=== PATIENT | female | born 1950 | race Caucasian/White ===

== ENCOUNTER 2018-05-06 11:49 | Outpatient (REF) | payer MEDICARE, BC, SELFPAY | END 2018-05-06 12:09 | LOC: LBN 11:49 | PROVIDERS: PCP Internal Medicine; Visit Provider Internal Medicine | DX: R82.90 Unspecified abnormal findings in urine (principal); N89.8 Other specified noninflammatory disorders of vagina | CPT/HCPCS: 87086; 87480; 87510; 87660 ==

== ENCOUNTER 2019-02-10 00:31 | Outpatient (CLI) | payer MEDICARE, BC, SELFPAY ==
--- NOTE | 2019-02-10 08:09 | DI.MAMMO_ITS ---
EXAM: MAMMO SCREENING CLINICAL HISTORY: screening,Z12.39 TECHNIQUE: Mammograms were interpreted according to the usual protocol including computer analysis w [employer] CAD system, tomosynthesis and C-view imaging. FINDINGS: The breasts are of moderate density with fairly symmetrical distribution of fibroglandular tissue. N o dominant mass or clumped microcalcification is identified in either breast. Current examination is compared with previous examinations including April 2017 and there has been no gross interval change in appearance in comparison with the previous studies. IMPRESSION: No specific evidence of malignancy at this time. Routine screening examinations are suggested at year ly intervals in this age group according to the ACS ACR guideines. Category 1. Breast density, catego ry B. BI-RADS Cat 1 - Negative. Breast Density - Category B - Scattered areas of fibroglandular density.
[2019-02-10 09:26] LABS: BUN 19 mg/dL (7-18); CREATININE 0.84 mg/dL (0.55-1.02); Calcium 9.3 mg/dL (8.5-10.1); Calculated LDL 138 mg/dL; Chloride 104 mmol/L (98-107); Cholesterol 219 mg/dL (<200); Glucose 99 mg/dL (74-106); HDL Cholesterol 44 mg/dL (40-60); Potassium 4.1 mmol/L (3.5-5.1); Sodium 143 mmol/L (136-145); Triglyceride 189 mg/dL (<150)
== END 2019-02-10 00:51 ==
PROVIDERS: PCP Internal Medicine; Visit Provider Internal Medicine
DX: Z12.31 Encounter for screening mammogram for malignant neoplasm of breast (principal); I10 Essential (primary) hypertension
CPT/HCPCS: 36415; 77063; 77067; 80048; 80061

== ENCOUNTER 2019-05-19 12:24 | Emergency (ER) | payer MEDICARE, BC, SELFPAY ==
[2019-05-19] VITALS (7 sets, daily range): BP systolic 145–168; BP diastolic 71–82; PULSE 63–88; RESP 8–19; TEMP 36.6–36.7; O2SAT 95–100
--- NOTE | 2019-05-19 12:30 | DI.CT_ITS ---
EXAM: CT ABDOMEN AND PELVIS W CLINICAL HISTORY: MIDDLE AND RIGHT LOWER ABDOMINAL PAIN TECHNIQUE: Imaging Protocol: Axial computed tomography images with coronal and sagittal reformatted images were created and reviewed CONTRAST MATERIAL: Intravenous: Omnipaque 350 Contrast volume:100 mL Oral: No COMPARISON: RENAL COLIC WO CONTRAST from 07/02/2016 FINDINGS: ABDOMEN: Lung Bases: Dependent atelectasis. Liver: Normal density. No measurable mass. Portal, Superior Mesenteric, and Splenic Veins: Unremarkable. Gallbladder and Biliary Tract: No radiodense calculus or dilation. Pancreas: Normal density, no abnormal calcifications or inflammatory process. Stable cystic lesion in the body of the pancreas. Spleen: Normal. Adrenals: No masses seen. Kidneys: Normal size, contour and axis. No radiodense stones or obstructive uropathy. No masses seen. Small right renal cyst. It appears stable compared to 07/02/2016. Abdominal Aorta: Abdominal portion non-dilated. Atherosclerosis. Bowel: No obstruction or bowel wall thickening. Appendix is unremarkable. Colonic diverticulosis but no evidence of acute diverticulitis. Peritoneal Cavity: No ascites, collection or mesenteric inflammatory response. Lymph Nodes: Within normal limits. Bones: Degenerative changes. Soft Tissues: Unremarkable. PELVIS: Bladder: Symmetric distention, no gross wall thickening. Reproductive Organs: Status post hysterectomy. Lymph Nodes: Within normal limits. Bones: Within normal limits. IMPRESSION: No acute abdominal or pelvic process. These findings were discussed with the Emergency Department on the date of the examination. RADIATION DOSE DELIVERED: DATA REPOSITORY: All CT scans at this facility are submitted to the National Radiology Data Registry (NRDR) Dose Index Registry (DIR) with the [employer] (ACR). RADIATION OPTIMIZATION: All CT scans at this facility use at least one of these dose optimization te chniques: automated exposure control; mA and/or kV adjustment per patient size (includes targeted exa ms where dose is matched to clinical indication); or iterative reconstruction.
--- NOTE | 2019-05-19 12:36 | W.ED.GENAD ---
Discharge Plan Disposition Patient Disposition: HOME Condition: Stable Discharge Details Chief Complaint: Abd Prob Clinical Impression: Abdominal pain, Constipation Primary Care Provider: Rea Ponce ED Provider: Devon Yadav Home Meds and New Rx's Prescriptions: Continued pseudoephedrine HCl 30 mg tablet 30 mg PO Q6H PRN (Reason: nasal/sinus congestion) Qty: 10 RF: 0 prednisone 20 mg tablet 40 mg PO DAILY Qty: 10 RF: 0 multivitamin [Daily Multiple] 1 EACH tablet 1 ea PO DAILY RF: 0 acetaminophen [Acetaminophen Extra Strength] 500 MG tablet 1,000 mg PO Q6H PRN RF: 0 metoprolol succinate 50 mg tablet extended release 24 hr 50 mg PO DAILY Qty: 90 RF: 3 montelukast 10 mg tablet 10 mg PO DAILY Qty: 90 RF: 3 loratadine [Claritin Liqui-Gel] 10 mg capsule 10 mg PO DAILY Qty: 90 RF: 3 losartan 100 mg tablet 100 mg PO DAILY Qty: 90 RF: 3 hydrochlorothiazide 12.5 mg capsule 12.5 mg PO DAILY Qty: 90 RF: 3 aspirin [Aspir-81] 81 MG tablet,delayed release (DR/EC) 81 mg PO DAILY RF: 0 levalbuterol tartrate [Xopenex HFA] 15 GM HFA aerosol inhaler 2 puff Inhalation PRN PRNRF: 0 meclizine [Antivert] 25 MG tablet 1 tab PO PRN PRNRF: 0 docusate sodium 100 MG capsule 200 mg PO DAILY RF: 0 Discharge Instructions Instructions: Constipation (ED) Additional Instructions: your cat scan and labs did not show any concerning findings try taking milk of magnesia and if still having trouble with bowel movements in 2-3 days start using fleet enemas. Discuss with your primary care provider seeing gastroenterology or general surgery for the constipation if it continues if you have severe worsening pain or persistent vomit return to the emergency department Medical Decision Making 68 yo female with hx of htn, hld, prior diverticulitis and hysterectomy comes in with chief complaint of constipation and mid to right lower abdomen pain radiating to the back for a week. Denies fevers, vomit, has had nausea. No bloody stools. She has tenderness with palpation to the lower mid and right side of her abdomen without distention. Will obtain labs and imaging to evaluate for entities such as sbo, pancreatitis, appendicitis and diverticulitis. labs and imaging unremarkable. She has mild tenderness in right lower abdomen no guarding or rebound. I suspect constipation and advised to continue her colace and also start laxatives like milk of magnesia and if still no bowel movement enema and if still having issues discuss seeing GI or surgery as outpatient with her pcp. Return precautions given Differential Diagnosis Differential Diagnosis: appendicitis, diverticulitis, constipation Medical Records Medical records reviewed: Yes I reviewed the patient's medical records. Imaging Data Radiologic Study: Attestation: I personally reviewed and interpreted this imaging study as follows: Imaging: CT Scan Radiologist's impression: no acute findings per dr. dawkins Lab Data Lab results reviewed: Yes I reviewed the patient's lab results. HPI General Mode of arrival: ambulatory. Date/Time Provider Initiated Documentation: 05/19/19 12:31. Limitations to Documentation: no limitations. Information obtained by: patient. History of Present Illness 68 year old F presents to the emergency department with the chief complaint of abdominal pain, described as moderate, with intensity rated at 6. Quality is described as stabbing and aching, and is localized to the abdomen. Patient reports radiation to back. Patient started experiencing this week(s) (1) and it has been constant. No relieving factors improve symptom(s), No exacerbating factors reported . Patient did receive the following treatments prior to arrival, none Related Data Home Medications Medication Instructions Recorded Confirmed aspirin [Aspir-81] 81 mg PO DAILY 05/25/13 05/19/19 levalbuterol tartrate [Xopenex HFA] 2 puff INHALATION PRN PRN 05/25/13 05/19/19 docusate sodium 200 mg PO DAILY 04/19/14 05/19/19 meclizine [Antivert] 1 tab PO PRN PRN 04/19/14 05/19/19 acetaminophen [Acetaminophen Extra 1,000 mg PO Q6H PRN tab-cap 05/26/17 05/19/19 Strength] multivitamin [Daily Multiple] 1 ea PO DAILY 05/26/17 05/19/19 pseudoephedrine HCl 30 mg tablet 30 mg PO Q6H PRN #10 tab 05/20/18 05/19/19 loratadine 10 mg capsule 10 mg PO DAILY #90 tab-cap 09/14/18 05/19/19 metoprolol succinate 50 mg 50 mg PO DAILY #90 tab 09/14/18 05/19/19 tablet,extended release 24 hr montelukast 10 mg tablet 10 mg PO DAILY #90 tab 09/14/18 05/19/19 hydrochlorothiazide 12.5 mg capsule 12.5 mg PO DAILY #90 tab-cap 03/22/19 05/19/19 losartan 100 mg tablet 100 mg PO DAILY #90 tab 03/22/19 05/19/19 prednisone 20 mg tablet 40 mg PO DAILY #10 tab 04/25/19 05/19/19 Previous Rx's Medication Instructions Recorded pseudoephedrine HCl 30 mg tablet 30 mg PO Q6H PRN #10 tab 05/20/18 loratadine 10 mg capsule 10 mg PO DAILY #90 tab-cap 09/14/18 metoprolol succinate 50 mg 50 mg PO DAILY #90 tab 09/14/18 tablet,extended release 24 hr montelukast 10 mg tablet 10 mg PO DAILY #90 tab 09/14/18 hydrochlorothiazide 12.5 mg capsule 12.5 mg PO DAILY #90 tab-cap 03/22/19 losartan 100 mg tablet 100 mg PO DAILY #90 tab 03/22/19 prednisone 20 mg tablet 40 mg PO DAILY #10 tab 04/25/19 Allergies Allergy/AdvReac Type Severity Reaction Status Date / Time albuterol Allergy Unknown unknown Verified 05/19/19 12:34 codeine Allergy Unknown unknown Verified 05/19/19 12:34 iodine Allergy Unknown unknown Verified 05/19/19 12:34 lisinopril AdvReac Intermediate cough Verified 05/19/19 12:34 dexamethasone AdvReac Unknown irritability Verified 05/19/19 12:34 and mental status changes enviornmental Allergy Mild Wheezing Uncoded 05/19/19 12:34 General Stated Complaint: Abd Prob LUCI: 3 Review of Systems All systems reviewed & are unremarkable except as noted in HPI and below Constitutional Constitutional: Denies chills, Denies fever(s) and Denies weakness Cardiovascular Cardiovascular: Denies chest pain and Denies dyspnea Respiratory Respiratory: Denies cough and Denies dyspnea Gastrointestinal Gastrointestinal: Denies vomiting Genitourinary Genitourinary: Denies dysuria Musculoskeletal Musculoskeletal: Denies joint swelling Neurologic Neurologic: Denies weakness Psychiatric Psychiatric: Denies depression REPLACED BY [facility] Medical History (Updated 03/26/20 @ 14:14 by Devon Yadav MD) Asthma Bronchitis Chronic sinus infection 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 Perforated TM childhood Diverticulosis Former smoker Heart palpitations HTN (hypertension) Osteoporosis Surgical History (Updated 12/09/17 @ 14:36 by [employer] [place]) Colonoscopy - IV Sedation (11/15/10) D&C 1979 Vaginal hysterectomy (02/22/83) Family History Sister Heart disease Myocardial infarction CABG Sister Heart disease Myocardial infarction Brother Heart disease valve dx Mother Congestive heart failure Father Alzheimer's dementia Stroke Other Hyperlipidemia Social History (Updated 11/02/18 @ 10:27 by Charlene Hannah LPN) Smoking/Tobacco Use Status: Former Tobacco Use Alcohol Intake: current Alcohol Intake frequency: a few times a week Drug use: Never Substance use type: does not use Household members: spouse Housing: house Number of Children: 3 Communication Needs: Corrective Lenses current occupation: retired - worked at [employer] What is your relationship status?: How often do you talk on the phone with friends or family?: three or more times per week Panel score (0-1 are the most socially isolated patients): 2 What type of physical activity do you participate in: walking and regular exercise Duration: 30-45 minutes/day Frequency: daily Seatbelt use: always Drive intox or ride w/intox jinriksha driver: No Working smoke detector in home: Yes Fire extinguisher in home: Yes Carbon monox detector in home: Yes Do you feel safe at home: Yes Do you feel safe in your relationship?: Yes Exam Const General: no acute distress Orientation: alert HENMT Head: normal to inspection Ears: external ears normal General nose exam: external nose normal Mouth: moist mucous membranes Eyes General: appearance normal, both eyes and all related structures Neck Neck: normal visual inspection Resp Effort & Inspection: normal respiratory effort and able to speak in complete sentences Cardio Rate: regular rate GI Palpation: soft Skin General skin exam: no rashes or lesions noted Neuro General: patient alert and patient oriented x3 Extrem General: normal to inspection Psych Mental Status: mental status grossly normal Course Vital Signs Vital signs: Vital Signs Temperature 36.7 C 05/19/19 12:26 Pulse 88 05/19/19 12:26 Respiratory Rate 18 05/19/19 12:26 Blood Pressure 168/82 H 05/19/19 12:26 Pulse Oximetry 98 05/19/19 12:26 Temperature 36.7 C 05/19/19 12:26 Pulse 88 05/19/19 12:26 Respiratory Rate 18 05/19/19 12:26 Respiratory Effort Non-Labored 05/19/19 12:30 Blood Pressure 168/82 H 05/19/19 12:26 Blood Pressure Position Supine 05/19/19 12:26 Pulse Oximetry 98 05/19/19 12:26 Oxygen Delivery Method Room Air 05/19/19 12:26 Oxygen Flow Rate 0 05/19/19 12:26 Pain Level 6 05/19/19 12:26
[2019-05-19] MEDS: Normal Saline 1,000 ML 1000 ML IV (12:40)
[2019-05-19 12:44] LABS: Bilirubin Negative (Negative); Blood Negative (Negative); Clarity Clear (Clear); Glucose Negative (Negative); Ketones Negative (Negative); Leukocyte Esterase Small (Negative); Nitrite Negative (Negative); Specific Gravity 1.015 (1.005-1.025); Urobilinogen 0.2 EU/dL (Up TO 0.2)
[2019-05-19] MEDS: Ondansetron 4 MG/2 ML VIAL IVP (12:45)
[2019-05-19] MEDS: Ketorolac 15 MG/ML VIAL IVP (12:50)
[2019-05-19 12:52] LABS: Abs Immature Grans 0.01 k/cumm (0.0-0.09); Absolute Basophil Count 0.02 k/cumm (0.0-0.2); Absolute Monocyte Count 0.57 k/cumm (0.11-0.7); Absolute Neutrophil Count 4.82 k/cumm (1.2-6.7); Basophils % 0.2; Eosinophils % 2.4; HCT 40.5 % (36.0-46.0); HGB 13.8 g/dL (12.0-15.5); Immature Grans % 0.1 %; Lymphocytes % 31.6; Mean Corp. HGB Concentration 34.1 g/dL (32.0-36.0); Mean Corpuscular Hemoglobin 29.3 pg (27.0-33.0); Mean Platelet Volume 9.8 fL (8.0-11.0); Monocytes % 6.9; Neutrophils % 58.8; Platelet Count 347 x1000/uL (130-400); RBC 4.71 m/cumm (4.00-5.20); RBC Distribution Width 13.4 % (11.7-14.6); White Blood Cell Count 8.22 k/cumm (4.4-10.8)
[2019-05-19] MEDS: Normal Saline Flush 10 ML SYR IVP (12:54)
[2019-05-19 12:59] LABS: Bacteria Rare HPF (Negative); C & S Indicated? Yes; Casts Negative LPF (Negative); Crystals Negative HPF (Negative); Epithelial Cells Rare HPF (Negative); Mucus Negative (Negative); RBC 0-2 HPF (0-2)
[2019-05-19 13:10] LABS: INR 1.1 (0.9-1.1); PTT Activated 29.7 sec (21.0-31.4); Prothrombin Time 10.8 sec (9.3-11.0)
[2019-05-19 13:26] LABS: ALT 29 U/L (14-59); AST 24 U/L (15-37); Albumin 4.1 g/dL (3.4-5.0); Alkaline Phosphatase 97 U/L (46-116); Anion Gap 10.1 mmol/L (3-11); BUN 17 mg/dL (7-18); Bilirubin, Total 0.6 mg/dL (0.2-1.0); CO2 28.9 mmol/L (21.0-32.0); CREATININE 0.86 mg/dL (0.55-1.02); Calcium 9.4 mg/dL (8.5-10.1); Chloride 100 mmol/L (98-107); Glucose 102 mg/dL (74-106); Lipase 197 U/L (73-393); Potassium 3.4 mmol/L (3.5-5.1); Sodium 139 mmol/L (136-145)
[2019-05-19] MEDS: Omnipaque 350 MG/ML 100 ML BTL IJ (13:43)
[2019-05-19] MEDS: Normal Saline - Diluent 50 ML VIAL IV (13:45)
== END 2019-05-19 14:39 | disposition home or self-care (01) ==
PROVIDERS: Emergency Provider Emergency Medicine; PCP Internal Medicine
DX: K59.00 Constipation, unspecified (principal); R10.31 Right lower quadrant pain; R11.0 Nausea; I10 Essential (primary) hypertension
CPT/HCPCS: 36415; 80053; 83690; 87077; 96361; 96374; 96375; 99285; 74177; 81003; 81015; 82248; 85025; 85610; 85730; 87086; 99284; J1885; J2405; J3490

== ENCOUNTER 2019-10-11 14:10 | Outpatient (REF) | payer MEDICARE, BC, SELFPAY ==
[2019-10-11 20:33] LABS: Anion Gap 8.7 mmol/L (3-11); BUN 15 mg/dL (7-18); CO2 28.3 mmol/L (21.0-32.0); Calcium 9.1 mg/dL (8.5-10.1); Calculated LDL 136 mg/dL (<100); Chloride 106 mmol/L (98-107); Cholesterol 204 mg/dL (<200); Glucose 102 mg/dL (74-106); HDL Cholesterol 43 mg/dL (40-60); Potassium 4.5 mmol/L (3.5-5.1); Sodium 143 mmol/L (136-145); TSH 3.02 uIU/mL (0.36-3.74); Triglyceride 126 mg/dL (<150)
== END 2019-10-11 14:30 ==
LOC: LBO 14:10
PROVIDERS: PCP Internal Medicine; Referring Provider Internal Medicine; Visit Provider Internal Medicine
DX: K59.00 Constipation, unspecified (principal); I10 Essential (primary) hypertension; Z82.49 Family history of ischemic heart disease and other diseases of the circulatory system
CPT/HCPCS: 80048; 80061; 84443

== ENCOUNTER → 2019-10-18 10:39 | Outpatient (BNVA) | payer MEDICARE, BC, SELFPAY | PROVIDERS: PCP Internal Medicine; Referring Provider Internal Medicine; Visit Provider Surgery | DX: R19.4 Change in bowel habit (principal); I10 Essential (primary) hypertension | CPT/HCPCS: 99202; 99213 ==

== ENCOUNTER 2019-11-07 11:57 | Day surgery (SDC) | payer MEDICARE, BC, SELFPAY ==
--- NOTE | 2019-11-07 07:06 | W.COLOREPORT ---
Date of service: 11/07/19 Time of Service: 14:02 Colonoscopy Report Date of procedure: 11/07/19 Pre-op diagnosis general: Bowel habit changes Post-op diagnosis procedure note: other (Diverticulosis and rectal polyp) Procedure: Colonoscopy with polypectomy Surgeon: Corrine Alonso Anesthesia proc note operative: other (General/ASA 2/Ju Owen, HERMILA) Estimated blood loss (mL): 2 Pathology: other (Rectal polyp) Complications: None Disposition: same day Indications: Bowel habit changes: A\\ 68 year old female who since february has been having fluctuating BM's from diarrhea to constipation. Also complaining of abdominal pain. On exam she is tender in thye back and that radiates to the front. Abdominal exam benign. Last colonoscopy 9 years ago was normal P\\ Colonoscopy under sedation Risks, benefits and complications have been reviewed. Complications include but are not limited to bleeding, pain, perforation, missed small lesion/polyp, sore throat, aspiration and adverse reaction to the medications. Questions were entertained and answered to their satisfaction and they wished to proceed. No guarantees were given or implied Prep: Miralax/Dulcolax Procedure Start Time: 13:16 Procedure End Time: 13:55 Retraction Time: 12 minutes Findings: One rectal polyps and diverticulosis Procedure Description: After informed consent was obtained the patient was taken to the procedure room and placed in a left decubitous position. Monitors were applied and a time out was done. The patients name, date of , procedure, allergies to medications and metal in their body was reviewed. The patient was then sedated. Once sedated and comfortable a rectal exam was done. External exam was normal. Internal exam revealed a normal sphincter tone and no palpable masses. The scope was then introduced and retro-flexed. No internal hemorrhoids were identified. The scope was then advanced to the cecum with difficulty. The scope kept curling up inside. Patient had to be placed on her back and abdominal pressure had to be applied for the scope to finally advance to the cecum. The ileocecal valve and appendiceal orifice were identified. The prep was adequate. The scope was then slowly retracted over 12 minutes back into the rectum. Polyps were removed with a hot snare in the rectum. There was moderate to severe divrticulosis of the entire large bowel. The scope was removed and the patient was woken up and taken back to Same day surgery in stable condition. The patient tolerated the procedure well and there were no immediate complications. Follow up: The patient should follow up in 5 years unless they develop changes in bowel habits or other new gastrointestinal complaints.
--- NOTE | 2019-11-07 07:07 | W.PM.DSUDISC ---
Discharge Plan Disposition Patient Disposition: HOME Condition: Good Discharge Details Reason For Visit: Colonoscopy Attending Provider: Corrine Alonso Primary Care Provider: Rea Ponce Home Meds and New Rx's Prescriptions: Continued acetaminophen [Acetaminophen Extra Strength] 500 MG tablet 1,000 mg PO Q6H PRN RF: 0 losartan 100 mg tablet 100 mg PO DAILY Qty: 90 RF: 3 hydrochlorothiazide 12.5 mg capsule 12.5 mg PO DAILY Qty: 90 RF: 3 loratadine [Claritin Liqui-Gel] 10 mg capsule 10 mg PO DAILY Qty: 90 RF: 3 metoprolol succinate 50 mg tablet extended release 24 hr 50 mg PO DAILY Qty: 90 RF: 3 montelukast 10 mg tablet 10 mg PO DAILY Qty: 90 RF: 3 aspirin [Aspir-81] 81 MG tablet,delayed release (DR/EC) 81 mg PO DAILY RF: 0 levalbuterol tartrate [Xopenex HFA] 15 GM HFA aerosol inhaler 2 puff Inhalation PRN PRNRF: 0 meclizine [Antivert] 25 MG tablet 1 tab PO PRN PRNRF: 0 docusate sodium 100 MG capsule 200 mg PO DAILY RF: 0 Discontinued bisacodyl [Dulcolax (bisacodyl)] 5 mg tablet,delayed release (DR/EC) 5 mg PO ONCE Qty: 4 RF: 0 polyethylene glycol 3350 17 gram powder in packet 255 g PO DAILY Qty: 15 RF: 0 Discharge Instructions Instructions: Diverticulosis (DC), Colorectal Polyps (DC) Additional Instructions: Findings: Rectal polyps Diverticulosis Follow up: 3-5 years Please call if you develop: fevers >101.5 Nausea or Vomiting Abdominal pain that is not transient DAY SURGERY UNIT POST ENDOSCOPY INSTRUCTIONS 1. Because there will be medication in your system for the next 24 hours, you may feel a little sleepy. Your coordination will be affected. Therefore: a. Do not drive or operate dangerous equipment for 24 hours. b. Do not drink alcohol beverages for 24 hours (not even beer). c. Plan to go home and rest for the day. 2. Generally there are no restrictions on your activity after a day or so has gone by, but you may feel a bit fatigued for a few days. 3 After you arrive home you may have a light meal and return to a normal diet as you can tolerate it without feeling sick to your stomach. 4. After surgery, you may feel pain or discomfort. This should be only transient, but if it persists please contact your doctor. 5. If there are any questions regarding the findings of your procedure, please feel free to contact your doctor. 6. If you are unable to contact your doctor with a problem, contact the hospital at [phone]. 7. Continue all your regular medications unless directed otherwise. I understand the above instructions and have no questions. Signature of Patient or Responsible Adult Escort Date/Time Name of Responsible Adult Escort Signature of Nurse Date/Time Activity:: Activity as Tolerated Diet:: High Fiber diet Discharge Orders Discharge Orders: Discharge Order (Routine); Ordered 11/07/19 Ordered By: Corrine Alonso
[2019-11-07 12:08] VITALS: BP 161/91; PULSE 69; RESP 18; TEMP 36.5; O2SAT 99
[2019-11-07] MEDS: Lactated Ringers 1,000 ML 80 ML IV (12:50)
--- NOTE | 2019-11-07 13:50 | BOWEL_PTH ---
PATIENT: Molly De LOC: [facility] U#:[id number] AGE/SX: 69/F ROOM: RE11/07/[address]: Corrine Alonso MD : 1950 BED: DIS: 11/07/2019 SPEC #: [id number] RECD: 11/07/19 17:51 STATUS: VALERIY RE #: [id number] MIKE: 11/07/19 13:[address]: Corrine Alonso DEPT: Surgical Specimen RECD BY: Monica Stein ENTERED: 11/07/19 17:52 SP TYPE: Bowel OTHR DR: Rea Ponce MD Tissues: 1 - BIOPSY BOWEL Procedures: GROSS AND MICRO LEVEL 4 Comments: [id number]
[2019-11-07 14:35] VITALS: BP 160/102; PULSE 64; RESP 17; TEMP 36.2; O2SAT 97
== END 2019-11-07 14:52 | disposition home or self-care (01) ==
LOC: SUR 11:57
PROVIDERS: PCP Internal Medicine; Visit Provider Surgery
PROC: 0DJD8ZZ Inspection of Lower Intestinal Tract, Via Natural or Artificial Opening Endoscopic (ICD-10-PCS; CPT 45378; principal; 2019-11-07 13:45)
DX: D12.8 Benign neoplasm of rectum (principal); K59.00 Constipation, unspecified; K57.30 Diverticulosis of large intestine without perforation or abscess without bleeding; I10 Essential (primary) hypertension; Z87.891 Personal history of nicotine dependence; Z12.11 Encounter for screening for malignant neoplasm of colon
CPT/HCPCS: 45385; 88305; J2001; J2405

== ENCOUNTER 2020-02-29 03:25 | Outpatient (CLI) | payer MEDICARE, BC, SELFPAY ==
--- NOTE | 2020-02-29 07:00 | DI.MAMMO_ITS ---
EXAM: MG MAMMO SCREENING CLINICAL HISTORY: screening,Z12.39. TECHNIQUE: Bilateral full field digital CC and MLO mammographic images were obtained with 3D tomosyn thesis and utilizing computer aided detection (CAD). COMPARISON: Prior mammograms dating back to 2010, the most recent being January 2019.. FINDINGS: There are no spiculated masses nor malignant appearing microcalcification groups. There is no signif icant architectural distortion nor skin thickening-retraction. IMPRESSION: No radiographic evidence of malignancy. BI-RADS Category 1 - Negative Breast Density - Category B - Scattered areas of fibroglandular density Breast density Category C or D implies that the patient has dense breast tissue. Dense breast tissue can make it harder to find cancer on a mammogram. Dense breast tissue is also associated with an incr eased risk of breast cancer. This information about the result of the mammogram report was provided to the patient to raise their awareness. Use this report when you speak with the patient about their risks for breast cancer, which includes their family history. At that time, you may recommend additional screening tests (Ultrasoun d or MRI) as these tests may add significant information. A negative radiographic report should not delay biopsy if a dominant or clinically suspicious mass is present. Up to ten percent of cancers are not identified on mammography. A negative report may reinforce clinical impression. Adenosis and dense breasts may obscure an underlying neoplasm. False positive reports average 6 to 10%. Patient will receive a letter notifying them of these results.
== END 2020-02-29 03:45 ==
PROVIDERS: PCP Internal Medicine; Visit Provider Internal Medicine
DX: Z12.31 Encounter for screening mammogram for malignant neoplasm of breast (principal)
CPT/HCPCS: 77063; 77067

== ENCOUNTER 2020-09-28 04:14 | Outpatient (CLI) | payer MEDICARE, BC, SELFPAY ==
--- NOTE | 2020-09-28 08:15 | DI.RAD_ITS ---
Exam(s) XR HAND RT COMPLETE EXAM: XR HAND RT COMPLETE CLINICAL HISTORY: continued pain of injured finger, S69.90XA TECHNIQUE: COMPARISON: No exams were available for comparison FINDINGS: Three views were obtained. There are degenerative changes of the DIP joints, most marked at the inde x, middle, and little fingers. No acute fracture or dislocation identified. IMPRESSION: RADIATION DOSE DELIVERED: Total DLP
== END 2020-09-28 04:34 ==
PROVIDERS: PCP Internal Medicine; Visit Provider Internal Medicine
DX: S69.91XA Unspecified injury of right wrist, hand and finger(s), initial encounter (principal); M19.041 Primary osteoarthritis, right hand; X58.XXXA Exposure to other specified factors, initial encounter
CPT/HCPCS: 73130

== ENCOUNTER 2020-12-04 03:36 | Outpatient (CLI) | payer MEDICARE, BC, SELFPAY ==
[2020-12-04 08:46] LABS: Anion Gap 7.9 mmol/L (3-11); BUN 17 mg/dL (7-18); CO2 30.1 mmol/L (21.0-32.0); CREATININE 0.9 mg/dL (0.55-1.02); Calculated LDL 113 mg/dL (<100); Chloride 106 mmol/L (98-107); Cholesterol 185 mg/dL (<200); Glucose 98 mg/dL (74-106); HDL Cholesterol 49 mg/dL (40-60); Potassium 4.6 mmol/L (3.5-5.1); Sodium 144 mmol/L (136-145); Triglyceride 117 mg/dL (<150)
== END 2020-12-04 03:37 | disposition home or self-care (01) ==
LOC: LBO 03:37
PROVIDERS: PCP Internal Medicine; Visit Provider Internal Medicine
DX: I10 Essential (primary) hypertension (principal); E78.00 Pure hypercholesterolemia, unspecified
CPT/HCPCS: 36415; 80048; 80061

== ENCOUNTER 2021-12-25 03:18 | Outpatient (CLI) | payer MEDICARE, BC, SELFPAY ==
[2021-12-25 08:16] LABS: Anion Gap 5.4 mmol/L (3-11); BUN 16 mg/dL (7-18); CO2 31.6 mmol/L (21.0-32.0); CREATININE 0.8 mg/dL (0.55-1.02); Calculated LDL 151 mg/dL (<100); Chloride 106 mmol/L (98-107); Cholesterol 235 mg/dL (<200); Estimated GFR 79.71 (mL/min/1.73m2); Glucose 103 mg/dL (74-106); HDL Cholesterol 47 mg/dL (40-60); Potassium 3.8 mmol/L (3.5-5.1); Sodium 143 mmol/L (136-145); Triglyceride 188 mg/dL (<150)
== END 2021-12-25 03:19 | disposition home or self-care (01) ==
LOC: LBO 03:20
PROVIDERS: Internal Medicine; Absent Provider Nurse Practitioner Adult Health; PCP Nurse Practitioner Adult Health; Visit Provider Nurse Practitioner Adult Health
DX: I10 Essential (primary) hypertension (principal); E78.5 Hyperlipidemia, unspecified
CPT/HCPCS: 36415; 80048; 80061

== ENCOUNTER 2022-04-07 12:11 | Outpatient (CLI) | payer MEDICARE, BC, SELFPAY ==
--- NOTE | 2022-04-07 12:00 | RT.EKG_ITS ---
APPROVED REPORT Exam: Resting ECG Reason for Exam: assess rhythm Patient Location: O HR:53 bpm ECG Measurements Heart Rate 53 AXIS MI 173 P 59 QRSd 118 QRS 15 QT 431 T 39 QTc 405 Conclusion Sinus rhythm...normal P axis, V-rate 50- 99
== END 2022-04-07 12:12 | disposition home or self-care (01) ==
LOC: DI.KIM 12:13
PROVIDERS: PCP Nurse Practitioner Adult Health; Visit Provider Nurse Practitioner Adult Health
DX: R07.89 Other chest pain (principal)
CPT/HCPCS: 93010

== ENCOUNTER 2022-10-30 09:29 | Outpatient (RCR) | payer MEDICARE, BC, SELFPAY ==
--- NOTE | 2022-10-30 09:30 | HOLTER_ITS ---
APPROVED REPORT Conclusion This is a 48-hour Holter monitor ordered for palpitations Rhythm throughout is sinus. Average heart rate is 63. Minimum was 48, maximum 102 There were occasional ventricular ectopic beats, very rare couplets There were rare atrial premature beats There was no atrial fibrillation no high-grade AV block no pauses greater than 3 seconds No patient symptoms were reported
== END 2022-11-22 23:59 | disposition home or self-care (01) ==
LOC: CARDOPNVT 09:29
PROVIDERS: PCP Nurse Practitioner Adult Health; Visit Provider Nurse Practitioner Adult Health
DX: R00.2 Palpitations (principal)
CPT/HCPCS: 93227; 93225; 93226

== ENCOUNTER → 2022-11-27 03:37 | Outpatient (CLI) | payer MEDICARE, BC, SELFPAY ==
--- NOTE | 2022-11-27 07:00 | DI.DEXA_ITS ---
Exam(s) XR DEXA BONE DENSITY W/WO OSMAN EXAM: XR DEXA BONE DENSITY W/WO OSMAN CLINICAL HISTORY: h/o osteoporosis with fosamax tx,m81.0 TECHNIQUE: Routine DEXA evaluation of the lumbar spine, hip, or forearm. COMPARISON: Prior DEXA scan performed August 2010 FINDINGS: Performed on a HoloLeatt unit. Lateral image: No compression fracture evident. Lumbar Spine total T-score: 1.0. Prior reading in 2010 was -0.5 Hip total T-score:-0.4. Prior reading in 2010 was -0.9. Independent reading at the level of the femoral neck yields T-score of -1.2 which is in the osteopen ia range. Forearm total T-score: -0.2 IMPRESSION: Bone mineral density measures in the osteopenia range. Fracture risk is moderate. Note: Any spine fracture indicates 5x risk for subsequent spine fracture and 2x risk for subsequent h ip fracture. World Health Organization criteria for BMD interpretation classify patients: Normal...... T- Score at or above -1.0 Osteopenic... T- Score between -1.0 and -2.5 Osteoporosis... T-Score at or below -2.5
--- NOTE | 2022-11-27 08:15 | DI.MAMMO_ITS ---
Exam(s) MAMMO SCREENING EXAM: MAMMO SCREENING CLINICAL HISTORY: screening,Z12.39. TECHNIQUE: Bilateral full field digital CC and MLO mammographic images were obtained with 3D tomosyn thesis and utilizing computer aided detection (CAD). COMPARISON: Prior mammograms were reviewed. FINDINGS: There has been no significant change in the appearance and distribution of the fibroglandular tissue. Asymmetric density posteriorly in left breast seen on the MLO view is unchanged from prior mammograms and therefore benign. There are no new spiculated masses nor malignant appearing microcalcification groups. There is no significant architectural distortion nor skin thickening-retraction. IMPRESSION: No radiographic evidence of malignancy. Stable benign findings. BI-RADS Category 2 - Benign Findings Breast Density - Category B - Scattered areas of fibroglandular density Breast density Category C or D implies that the patient has dense breast tissue. Dense breast tissue can make it harder to find cancer on a mammogram. Dense breast tissue is also associated with an incr eased risk of breast cancer. This information about the result of the mammogram report was provided to the patient to raise their awareness. Use this report when you speak with the patient about their risks for breast cancer, which includes their family history. At that time, you may recommend additional screening tests (Ultrasoun d or MRI) as these tests may add significant information. A negative radiographic report should not delay biopsy if a dominant or clinically suspicious mass is present. Up to ten percent of cancers are not identified on mammography. A negative report may reinforce clinical impression. Adenosis and dense breasts may obscure an underlying neoplasm. False positive reports average 6 to 10%. Patient will receive a letter notifying them of these results.
== END ==
PROVIDERS: PCP Nurse Practitioner Adult Health; Visit Provider Nurse Practitioner Adult Health
DX: Z12.31 Encounter for screening mammogram for malignant neoplasm of breast (principal); M81.0 Age-related osteoporosis without current pathological fracture; Z13.820 Encounter for screening for osteoporosis; Z78.0 Asymptomatic menopausal state
CPT/HCPCS: 77063; 77067; 77080

== ENCOUNTER 2023-03-19 04:02 | Outpatient (CLI) | payer MEDICARE, BC, SELFPAY ==
[2023-03-19 08:19] LABS: Anion Gap 5.4 mmol/L (3-11); BUN 19 mg/dL (7-18); CO2 31.6 mmol/L (21.0-32.0); CREATININE 0.9 mg/dL (0.55-1.02); Calcium 9.2 mg/dL (8.5-10.1); Calculated LDL 137 mg/dL (<100); Chloride 105 mmol/L (98-107); Cholesterol 220 mg/dL (<200); Estimated GFR 68.77 (mL/min/1.73m2); Glucose 97 mg/dL (74-106); HDL Cholesterol 51 mg/dL (40-60); Potassium 4.1 mmol/L (3.5-5.1); Sodium 142 mmol/L (136-145); Triglyceride 162 mg/dL (<150)
[2023-03-19 08:35] LABS: FREE T4 0.84 ng/dL (0.76-1.46)
[2023-03-19 09:10] LABS: Vitamin D 25 Total 36.9 ng/mL (30-100)
== END 2023-03-19 04:03 | disposition home or self-care (01) ==
LOC: LBO 04:02
PROVIDERS: PCP Nurse Practitioner Adult Health; Visit Provider Nurse Practitioner Adult Health
DX: E78.5 Hyperlipidemia, unspecified (principal); I10 Essential (primary) hypertension; K30 Functional dyspepsia; M81.0 Age-related osteoporosis without current pathological fracture
CPT/HCPCS: 36415; 80048; 80061; 82306; 84439; 84443

== ENCOUNTER → 2023-10-06 14:28 | Outpatient (BNVA) | payer MEDICARE, BC, SELFPAY | PROVIDERS: PCP Nurse Practitioner Adult Health; Referring Provider Nurse Practitioner Adult Health; Visit Provider Podiatrist | DX: L60.0 Ingrowing nail (principal); M79.671 Pain in right foot | CPT/HCPCS: 11750 ==

== ENCOUNTER → 2023-10-29 11:20 | Outpatient (BNVA) | payer MEDICARE, BC, SELFPAY | PROVIDERS: PCP Nurse Practitioner Adult Health; Referring Provider Nurse Practitioner Adult Health; Visit Provider Podiatrist | DX: L60.0 Ingrowing nail (principal); M79.671 Pain in right foot | CPT/HCPCS: 99213 ==

== ENCOUNTER 2024-09-06 03:41 | Outpatient (CLI) | payer MEDICARE, BC, SELFPAY ==
[2024-09-06 08:56] LABS: Anion Gap 9.5 mmol/L (3-11); BUN 19 mg/dL (7-18); CO2 29.5 mmol/L (21.0-32.0); Calcium 9.0 mg/dL (8.5-10.1); Calculated LDL 134 mg/dL (<100); Chloride 105 mmol/L (98-107); Cholesterol 206 mg/dL (<200); Estimated GFR 78.72 (mL/min/1.73m2); Glucose 104 mg/dL (74-106); HDL Cholesterol 49 mg/dL (>or=50); Potassium 3.9 mmol/L (3.5-5.1); Sodium 144 mmol/L (136-145); Triglyceride 116 mg/dL (<150)
== END 2024-09-06 03:42 | disposition home or self-care (01) ==
PROVIDERS: PCP Nurse Practitioner Adult Health; Referring Provider Nurse Practitioner Adult Health; Visit Provider Nurse Practitioner Adult Health
DX: Z82.49 Family history of ischemic heart disease and other diseases of the circulatory system (principal); Z13.6 Encounter for screening for cardiovascular disorders; I10 Essential (primary) hypertension
CPT/HCPCS: 36415; 80048; 80061